=== PATIENT | female | born 1980 | race Caucasian/White ===

== ENCOUNTER 2017-04-04 13:40 | Emergency (ER) | payer OTHER ==
[2017-04-04 13:55] VITALS: RESP 18
[2017-04-04] MEDS ORDERED: MAG HYDROX/AL HYDROX/SIMETH 30 ML CUP PO PRN (14:38)
[2017-04-04] MEDS ORDERED: FAMOTIDINE 20 MG/2 ML VIAL IV STA (14:38)
[2017-04-04] MEDS ORDERED: SODIUM CHLORIDE 0.9% 1,000 ML IV ONE (14:38)
[2017-04-04] MEDS ORDERED: ONDANSETRON 4 MG/2 ML VIAL IVP STA (14:38)
--- NOTE | 2017-04-04 14:49 | ED ---
Nausea/Vomiting/Diarrhea HPI - General Chief complaint: Nausea/Vomiting/Diarrhea Stated complaint: Acid Reflux Source: patient Mode of arrival: ambulatory Limitations: no limitations - History of Present Illness Initial comments: 36 her female presenting for evaluation of nausea and vomiting. She states that she has past medical history of GERD and it is exacerbated by alcohol consumption. She was at a wedding last night and had a few drinks and states having generalized GERD discomfort late in the evening and nausea and vomiting since midnight. She states she's had about 13 episodes of vomiting without hematemesis. She states she is usually able to manage her GERD with oral medications but at this point she is unable to keep them down. She describes her discomfort as a burning and is similar to previous exacerbations that were also induced by alcohol. She denies associated abdominal pain, dysuria, vaginal bleeding/discharge, constipation/diarrhea/melena/hematochezia. - Related Data Home Medications Medication Instructions Recorded Confirmed Ergocalciferol (Vitamin D2) 50,000 unit PO MO 04/04/17 04/04/17 [Vitamin D2] L.acidoph,Paracasei, B.lactis 1 cap PO DAILY 04/04/17 04/04/17 [Probiotic] Levothyroxine Sodium [Synthroid] 50 mcg PO DAILY 04/04/17 04/04/17 Methylphenidate HCl [Concerta] 36 mg PO DAILY 04/04/17 04/04/17 Previous Rx's Medication Instructions Recorded Mag Hydrox/Al Hydrox/Simeth 30 ml PO BID PRN #200 ml 04/04/17 [Maalox] Sucralfate [Carafate] 1 gm PO ACHS #30 tab 04/04/17 Allergies Allergy/AdvReac Type Severity Reaction Status Date / Time cefuroxime [From Ceftin] Allergy Rash/Hives Verified 04/04/17 14:10 hydrocodone bitartrate Allergy Rash/Hives Verified 04/04/17 14:10 [From Vicodin] propoxyphene napsylate Allergy Vomiting Verified 04/04/17 13:54 [From Darvocet-N] carbamazepine [From Tegretol] AdvReac Vomiting Verified 04/04/17 13:54 Review of Systems ROS Statement: Those systems with pertinent positive or pertinent negative responses have been documented in the HPI. ROS Other: All systems not noted in ROS Statement are negative. Constitutional: Denies: fever, chills, weakness Eyes: Denies: eye pain, eye discharge, vision change ENT: Denies: ear pain, throat pain Respiratory: Denies: cough, dyspnea Cardiovascular: Denies: chest pain, palpitations, dyspnea on exertion, orthopnea , edema Endocrine: Denies: fatigue, polydipsia, polyuria Gastrointestinal: Reports: nausea, vomiting, other (GERD). Denies: abdominal pain, diarrhea, constipation, hematemesis, melena, hematochezia Genitourinary: Denies: urgency, dysuria Musculoskeletal: Denies: back pain, arthralgia, myalgia Skin: Denies: rash, lesions Neurological: Denies: headache, weakness, numbness, paresthesias, confusion Psychiatric: Denies: anxiety, depression Hematological/Lymphatic: Denies: easy bleeding, easy bruising Past Medical History Past Medical History: Thyroid Disorder Additional Past Medical History / Comment(s): narcalepsy, hemachromotisis History of Any Multi-Drug Resistant Organisms: None Reported Past Surgical History: Hysterectomy Additional Past Surgical History / Comment(s): foot Past Psychological History: No Psychological Hx Reported Smoking Status: Never smoker Past Alcohol Use History: Occasional Past Drug Use History: None Reported General Exam Limitations: no limitations General appearance: alert, in no apparent distress Head exam: Present: atraumatic, normocephalic, normal inspection Eye exam: Present: normal appearance, PERRL, EOMI. Absent: scleral icterus, conjunctival injection, periorbital swelling ENT exam: Present: normal exam, mucous membranes moist Neck exam: Present: normal inspection. Absent: tenderness, meningismus, lymphadenopathy Respiratory exam: Present: normal lung sounds bilaterally. Absent: respiratory distress, wheezes, rales, rhonchi, stridor Cardiovascular Exam: Present: regular rate, normal rhythm, normal heart sounds. Absent: systolic murmur, diastolic murmur, rubs, gallop, clicks GI/Abdominal exam: Present: soft, normal bowel sounds. Absent: distended, tenderness, guarding, rebound, rigid Rectal exam: Present: deferred Extremities exam: Present: normal inspection, full ROM, normal capillary refill. Absent: tenderness, pedal edema, joint swelling, calf tenderness Back exam: Present: normal inspection Neurological exam: Present: alert, oriented X3, CN II-XII intact Psychiatric exam: Present: normal affect, normal mood Skin exam: Present: warm, dry, intact, normal color. Absent: rash Course Vital Signs 04/04/17 04/04/17 04/04/17 13:53 17:37 17:38 Temperature 98.2 F 98.2 F 97.8 F Pulse Rate 80 68 69 Respiratory 18 18 18 Rate Blood Pressure 122/66 128/67 128/67 O2 Sat by Pulse 98 100 100 Oximetry Medical Decision Making - Medical Decision Making 36-year-old female presented for evaluation of nausea and vomiting. She states is likely due to her GERD as she was drinking alcohol last night and this is the usual exacerbating factor to her GERD. She is unable to take any of her medications as she continues to have nausea and vomiting. She denies any abdominal pain, dysuria, vaginal bleeding/discharge, or constipation/ diarrhea. On physical examination she has a soft abdomen without peritoneal signs of guarding, rigidity, or rebound. The remainder of her physical exam is benign. Although this is likely an exacerbation of her GERD will still require ruling out pancreatitis versus cholelithiasis versus other intra-abdominal etiology. We will provide IV fluid, Pepcid, Maalox, and obtain labs and urine. Labs revealed no significant abnormalities and patient states that her symptoms have markedly improved. The patient was informed of her results and through shared decision making it was determined that she would be discharged with instructions to follow-up with her primary care physician and a GI specialist but to return to this facility if her symptoms should worsen or persist. The patient acknowledged an understanding of this information and agreed with this plan of care. - Lab Data Result diagrams: 04/04/17 14:41 04/04/17 14:41 Lab Results 04/04/17 04/04/17 04/04/17 Range/Units 14:41 14:41 14:41 WBC 9.9 (3.8-10.6) k/uL RBC 5.01 (3.80-5.40) m/uL Hgb 16.3 H (11.4-16.0) gm/dL Hct 48.5 H (34.0-46.0) % MCV 96.8 (80.0-100.0) fL MCH 32.6 (25.0-35.0) pg MCHC 33.7 (31.0-37.0) g/dL RDW 12.9 (11.5-15.5) % Plt Count 280 (150-450) k/uL Neutrophils % 76 % Lymphocytes % 18 % Monocytes % 3 % Eosinophils % 1 % Basophils % 1 % Neutrophils # 7.5 (1.3-7.7) k/uL Lymphocytes # 1.8 (1.0-4.8) k/uL Monocytes # 0.3 (0-1.0) k/uL Eosinophils # 0.1 (0-0.7) k/uL Basophils # 0.1 (0-0.2) k/uL Sodium 144 (137-145) mmol/L Potassium 4.4 (3.5-5.1) mmol/L Chloride 106 (98-107) mmol/L Carbon Dioxide 26 (22-30) mmol/L Anion Gap 12 mmol/L BUN 9 (7-17) mg/dL Creatinine 0.63 (0.52-1.04) mg/dL Est GFR (MDRD) Af Amer >60 (>60 ml/min/1.73 sqM) Est GFR (MDRD) Non-Af >60 (>60 ml/min/1.73 sqM) Glucose 95 (74-99) mg/dL Calcium 9.8 (8.4-10.2) mg/dL Total Bilirubin 1.0 (0.2-1.3) mg/dL AST 21 (14-36) U/L ALT 25 (9-52) U/L Alkaline Phosphatase 75 (38-126) U/L Total Protein 8.2 (6.3-8.2) g/dL Albumin 4.8 (3.5-5.0) g/dL Lipase 73 (23-300) U/L Urine Color Urine Appearance (Clear) Urine pH (5.0-8.0) Ur Specific [place] (1.001-1.035) Urine Protein (Negative) Urine Glucose (UA) (Negative) Urine Ketones (Negative) Urine Blood (Negative) Urine Nitrite (Negative) Urine Bilirubin (Negative) Urine Urobilinogen (<2.0) mg/dL Ur Leukocyte Esterase (Negative) Urine HCG, Qual Not Detected (Not Detectd) 04/04/17 Range/Units 14:41 WBC (3.8-10.6) k/uL RBC (3.80-5.40) m/uL Hgb (11.4-16.0) gm/dL Hct (34.0-46.0) % MCV (80.0-100.0) fL MCH (25.0-35.0) pg MCHC (31.0-37.0) g/dL RDW (11.5-15.5) % Plt Count (150-450) k/uL Neutrophils % % Lymphocytes % % Monocytes % % Eosinophils % % Basophils % % Neutrophils # (1.3-7.7) k/uL Lymphocytes # (1.0-4.8) k/uL Monocytes # (0-1.0) k/uL Eosinophils # (0-0.7) k/uL Basophils # (0-0.2) k/uL Sodium (137-145) mmol/L Potassium (3.5-5.1) mmol/L Chloride (98-107) mmol/L Carbon Dioxide (22-30) mmol/L Anion Gap mmol/L BUN (7-17) mg/dL Creatinine (0.52-1.04) mg/dL Est GFR (MDRD) Af Amer (>60 ml/min/1.73 sqM) Est GFR (MDRD) Non-Af (>60 ml/min/1.73 sqM) Glucose (74-99) mg/dL Calcium (8.4-10.2) mg/dL Total Bilirubin (0.2-1.3) mg/dL AST (14-36) U/L ALT (9-52) U/L Alkaline Phosphatase (38-126) U/L Total Protein (6.3-8.2) g/dL Albumin (3.5-5.0) g/dL Lipase (23-300) U/L Urine Color Yellow Urine Appearance Clear (Clear) Urine pH 6.5 (5.0-8.0) Ur Specific [place] 1.022 (1.001-1.035) Urine Protein Trace H (Negative) Urine Glucose (UA) Negative (Negative) Urine Ketones 4+ H (Negative) Urine Blood Negative (Negative) Urine Nitrite Negative (Negative) Urine Bilirubin Negative (Negative) Urine Urobilinogen <2.0 (<2.0) mg/dL Ur Leukocyte Esterase Negative (Negative) Urine HCG, Qual (Not Detectd) Disposition Clinical Impression: Nausea and vomiting, GERD (gastroesophageal reflux disease) Disposition: HOME SELF-CARE Condition: Stable Instructions: Acute Nausea and Vomiting (ED), Gastroesophageal Reflux Disease ( ED) Additional Instructions: Please use medication as discussed. Please follow up with family doctor if symptoms have not improved over the next two days. Please return to the emergency room if your symptoms increase or worsen or for any other concerns. Prescriptions: Mag Hydrox/Al Hydrox/Simeth [Maalox] 30 ml PO BID PRN #200 ml PRN Reason: gerd Sucralfate [Carafate] 1 gm PO ACHS #30 tab Referrals: Lane Amaya III, MD [Primary Care Provider] - 1-2 days Time of Disposition: 16:44
[2017-04-04 14:55] LABS: Basophils # (A) 0.1 k/uL (0-0.2); Basophils % (A) 1 %; CH 33.4; CHCM 34.6; Eosinophils # (A) 0.1 k/uL (0-0.7); Eosinophils % (A) 1 %; HCT 48.5 % (34.0-46.0); HDW 2.59; HGB 16.3 gm/dL (11.4-16.0); Luc # (Auto) 0.14; Luc % (Auto) 1; Lymphocytes # (A) 1.8 k/uL (1.0-4.8); Lymphocytes % (A) 18 %; MCH 32.6 pg (25.0-35.0); MCHC 33.7 g/dL (31.0-37.0); MCV 96.8 fL (80.0-100.0); Mean Platelet Volume 8.2; Monocytes # (A) 0.3 k/uL (0-1.0); Monocytes % (A) 3 %; Neutrophils # (A) 7.5 k/uL (1.3-7.7); Neutrophils % (A) 76 %; RBC 5.01 m/uL (3.80-5.40); RDW 12.9 % (11.5-15.5); WBC 9.9 k/uL (3.8-10.6); WBC (Perox) 9.68
[2017-04-04 15:03] LABS: Appearance,Urine Clear (Clear); Bilirubin,Urine Negative (Negative); Glucose,Urine (UA) Negative (Negative); Ketones,Urine 4+ (Negative); Leukocyte Esterase,Urine Negative (Negative); Nitrite,Urine Negative (Negative); PH, Urine 6.5 (5.0-8.0); Protein,Urine Trace (Negative); Specific Gravity,Urine 1.022 (1.001-1.035); UA Billing (MACRO vs. MICRO) CHEM; Urobilinogen,Urine <2.0 mg/dL (<2.0)
[2017-04-04 15:04] LABS: ALT 25 U/L (9-52); AST 21 U/L (14-36); Alkaline Phosphatase 75 U/L (38-126); Anion Gap 12 mmol/L; Blood Urea Nitrogen 9 mg/dL (7-17); Calcium 9.8 mg/dL (8.4-10.2); Carbon Dioxide 26 mmol/L (22-30); Chloride 106 mmol/L (98-107); Glucose 95 mg/dL (74-99); Non-African American GFR(MDRD) >60 (>60 ml/min/1.73 sqM); Potassium 4.4 mmol/L (3.5-5.1); Sodium 144 mmol/L (137-145); Total Protein 8.2 g/dL (6.3-8.2)
[2017-04-04 17:38] VITALS: BP 128/67
[2017-04-04 17:39] VITALS: PULSE 69; TEMP 97.8
== END 2017-04-04 17:39 | disposition home or self-care (01) ==
LOC: EC 13:40
DX: K21.9 Gastro-esophageal reflux disease without esophagitis (principal); R11.2 Nausea with vomiting, unspecified; E07.9 Disorder of thyroid, unspecified; G47.419 Narcolepsy without cataplexy; Z79.899 Other long term (current) drug therapy; Z88.5 Allergy status to narcotic agent; Z88.1 Allergy status to other antibiotic agents; Z88.8 Allergy status to other drugs, medicaments and biological substances
CPT/HCPCS: 36415; 80053; 83690; 85025; 81003; 81025; 99284; 96374; 96375; J2405

== ENCOUNTER → 2019-01-03 | Outpatient (CLI) | payer OTHER ==
--- NOTE | 2019-01-04 09:32 | MM ---
Reason for exam: screening (asymptomatic). Baseline mammogram. History: Family history of breast cancer in aunt at age 41 and breast cancer in 3 other aunts. Took hormonal contraceptives beginning at age 17. Physical Findings: Nurse Summary: 1cm nodule in the left breast at 11 o'clock (nurse amadeo). MG 3D Screening Mammo W/Cad Bilateral CC and MLO view(s) were taken. The breast tissue is heterogeneously dense. This may lower the sensitivity of mammography. These results were verbally communicated with the patient and result sheet given to the patient on 01/03/19. ASSESSMENT: Incomplete: need additional imaging evaluation, BI-RAD 0 RECOMMENDATION: Ultrasound of the right breast. (palpable) [facility] will attempt to contact patient to return for ultrasound.
--- NOTE | 2019-01-04 09:34 | USB ---
Reason for exam: additional evaluation requested from abnormal screening. History: Family history of breast cancer in aunt at age 41 and breast cancer in 3 other aunts. Took hormonal contraceptives beginning at age 17. Physical Findings: Breast exam preformed at baseline screening. US Breast Workup Limited RT Right limited breast ultrasound including focal area of concern, retroareolar and axilla demonstrates a 0.7 x 0.3 x 0.5cm mixed lesion at 11 o'clock may correlate with palpable abnormality. These results were verbally communicated with the patient and result sheet given to the patient on 01/03/19. ASSESSMENT: Suspicious, BI-RAD 4 RECOMMENDATION: Surgical consultation and ultrasound core biopsy of the right breast. Called Dr. Amaya with mammographic findings and has scheduled an appointment for the patient for 01/05/19 at 9:[address] Sánchez. Biopsy scheduled for 01/11/19 at 12:20. PRELIMINARY REPORT CALLED AND FAXED TO DR. SÁNCHEZ ON 01/04/19.
== END ==
LOC: RADMAMWWP 15:39
PROVIDERS: ATTEND Family Medicine
DX: Z12.31 Encounter for screening mammogram for malignant neoplasm of breast (principal); R92.8 Other abnormal and inconclusive findings on diagnostic imaging of breast
CPT/HCPCS: 77063; 77067

== ENCOUNTER → 2019-01-05 | Outpatient (CLI) | payer OTHER ==
[2019-01-05 13:51] VITALS: BP 114/71; PULSE 74; RESP 16; TEMP 98.2; BMI 25.2
--- NOTE | 2019-01-05 14:31 | P.GSHP ---
History of Present Illness H&P Date: 01/05/19 Chief Complaint: nodule right breast Yoana is a 38-year-old white female who noted approximately 2 weeks ago an area of increased nodularity in the upper outer quadrant region of the right breast. She subsequently had a mammogram performed which did not show any specific lesions of concern this was followed by an ultrasound which revealed a 0.7 x 0.5 cm mixed lesion at 11:00. These studies were performed on 2018. The patient slowly 2 weeks ago she noted 2 areas of swelling under the right arm which are painful but have since subsided. The patient is not had any infection or trauma to her breast or right upper extremity. The area of nodularity in her right breast is not painful. The patient does not know if there is any correlation with her menstrual periods that she had a partial hysterectomy approximately 9 years ago, her ovaries were not removed. Patient has used Accutane in the recent past. Family History: 1. mother: moved when patient was 4 2. paternal grest aunt: two with breast cancer, one in early forties, the other in her 60's 3. paternal grandmother: hodgkins lymphoma Hormonal History: menarche: 12 : 3, 3 children, first at 20, breast fed: yes hysterectomy for bleeding, did not take ovaries, had lesions frozen off cervix BCP: 3 years hormones: none Past surgical history: 1. Partial hysterectomy 2. Neuroma right foot 3. Carpal tunnel right breast Past Medical History: 1. narcolepsy 2. Hemachromatosis 3. vitamin D low 4. anemia/took B12 Social History: smoke: none alcohol: every other month drugs: none - Constitutional Constitutional: Reports sweats, Denies chills, Denies fever - EENT Eyes: denies blurred vision, denies pain Ears: deny: decreased hearing, tinnitus Ears, nose, mouth and throat: Denies headache, Denies sore throat - Breasts Breasts: bilateral: as per HPI - Cardiovascular Cardiovascular: Denies chest pain, Denies shortness of breath - Respiratory Respiratory: Denies cough, Denies 7 - Gastrointestinal Gastrointestinal: Reports constipation, Denies abdominal pain, Denies diarrhea, Denies nausea, Denies vomiting - Genitourinary (Female) Comment: UTI when younger - Menstruation Comment: prone to yeast infections Menstruation: Reports post hysterectomy - Musculoskeletal Comment: fibromyalgia possible C spine changes - Integumentary Comment: used accutane for skin changes - Neurological Comment: left hand numbness and tingling needs carpal tunnel surgery Neurological: Denies numbness, Denies weakness - Psychiatric Psychiatric: Denies anxiety, Denies depression - Endocrine Comment: weight loss eating more healthy hypothyroid Endocrine: Reports weight change, Denies fatigue - Hematologic/Lymphatic Comment: none - Allergic/Immunologic Allergic/Immunologic: Reports as per HPI Past Medical History Past Medical History: Thyroid Disorder Additional Past Medical History / Comment(s): narcalepsy, hemachromotisis History of Any Multi-Drug Resistant Organisms: None Reported Past Surgical History: Hysterectomy Additional Past Surgical History / Comment(s): foot Past Psychological History: No Psychological Hx Reported Smoking Status: Never smoker Past Alcohol Use History: Occasional Past Drug Use History: None Reported Medications and Allergies Home Medications Medication Instructions Recorded Confirmed Type Ergocalciferol (Vitamin D2) 50,000 unit PO MO 04/04/17 01/05/19 History [Vitamin D2] Levothyroxine Sodium [Synthroid] 50 mcg PO DAILY 04/04/17 01/05/19 History Lisdexamfetamine Dimesylate DAILY 01/05/19 History [Vyvanse] Allergies Allergy/AdvReac Type Severity Reaction Status Date / Time cefuroxime [From Ceftin] Allergy Rash/Hives Verified 04/04/17 14:10 hydrocodone bitartrate Allergy Rash/Hives Verified 04/04/17 14:10 [From Vicodin] propoxyphene napsylate Allergy Vomiting Verified 04/04/17 13:54 [From Darvocet-N] carbamazepine [From Tegretol] AdvReac Vomiting Verified 04/04/17 13:54 Surgical - Exam Vital Signs Temp Pulse Resp BP Pulse Ox 98.2 F 74 16 114/71 99 01/05/19 13:42 01/05/19 13:42 01/05/19 13:42 01/05/19 13:42 01/05/19 13:42 BMI 25.2 - General well developed, well nourished, no distress - Eyes normal ocular movement - ENT no hearing loss, no congestion - Neck no masses, trachea midline - Respiratory normal respiratory effort, clear to auscultation - Cardiovascular Rhythm: regular Heart Sounds: normal: S1, S2 - Abdomen Abdomen: soft, non tender, no guarding, no rigid, no rebound - Integumentary skin condition, unsure of type, few areas of skin pocking over her face Dark nevus left upper abdominal wall - Neurologic no disoriented, no combative - Musculoskeletal normal gait, normal posture - Psychiatric oriented to time, oriented to person, oriented to place, speech is normal, memory intact Breast examination: Right breast: Multi-positional exam fibrocystic changes with increased nodularity upper outer quadrant area without dominant discrete mass of concern Right axilla: No adenopathy of concern Left breast: Multi-positional exam fibrocystic changes without dominant discrete mass or nodule of concern Left axilla: No adenopathy of concern Results Mammogram and ultrasound reports reviewed Assessment and Plan Assessment: Impression: 1. Increased fibroglandular tissue right breast upper outer quadrant region patient recommended for ultrasound-guided core biopsy of this area 2. Ultrasound abnormality right breast 3. Narcolepsy 4. Hemachromatosis 5. Anemia, patient takes vitamin D and did take B12 in the past 6. Fibromyalgia 7. Skin nevus left upper abdominal wall Plan: 1. Ultrasound-guided core biopsy right breast 2. Medical management of medical conditions 3. Continue to follow with dermatology and consider excision of nevus left upper abdominal wall which is dark CC: Dr. Amaya, Mary Ellen Duval N.P.
== END ==
LOC: WWCWWP 13:00
PROVIDERS: ATTEND Surgery
DX: Z53.9 Procedure and treatment not carried out, unspecified reason (principal)

== ENCOUNTER → 2019-01-11 | Day surgery (SDC) | payer OTHER ==
[2019-01-11 11:36] VITALS: RESP 16; TEMP 98; BMI 25.2
[2019-01-11 13:12] VITALS: BP 109/72; PULSE 73
--- NOTE | 2019-01-11 13:16 | USB ---
EXAMINATION TYPE: US biopsy breast VAD RT, MG diagnostic mammo RT wo CAD DATE OF EXAM: 01/11/2019 CLINICAL HISTORY: R92.8 ABN EJ. TECHNIQUE: Ultrasound guided core biopsy of right 11:00 breast. COMPARISON: NONE FINDINGS: The procedure of ultrasound guided core biopsy was explained to the patient. Benefits, alternatives, and risks were discussed. An informed consent was then obtained. The patient was placed in supine positioning for imaging and for the procedure. The overlying skin was prepped and draped in usual sterile fashion. Lidocaine buffered with bicarbonate was used as anesthetic into the skin and subcutaneous tissue up to area of concern in the right 11:00 breast. Under ultrasound guidance, a 12-gauge vacuum assisted biopsy gun device was used to obtain 3 core samples. Following this, a biopsy clip was left in lesion. Postprocedural mammogram demonstrates appropriate clip deployment. The patient tolerated the procedure well without any immediate complication. The patient was kept in the radiology department for short stay after the procedure and then discharged home in stable condition. IMPRESSION: Successful, uncomplicated ultrasound guided core biopsy of area of concern in the right 11:00 breast, full pathology results to follow. Pathology Results: Benign RIGHT BREAST, NEEDLE CORE BIOPSIES: Benign breast parenchyma with fibrocystic changes. Recommendation Follow up ultrasound of the left breast in 6 months. (6 month follow up ultrasound of the 11 o'clock biopsied site as this presented as a palpable site) BALJIT
== END ==
LOC: RADUSWWP 11:06
PROVIDERS: ATTEND Surgery
DX: N60.11 Diffuse cystic mastopathy of right breast (principal); Z88.1 Allergy status to other antibiotic agents; Z88.5 Allergy status to narcotic agent; Z88.8 Allergy status to other drugs, medicaments and biological substances
CPT/HCPCS: 88305; 77065; 19083; A4648; J2001

== ENCOUNTER → 2019-01-20 | Outpatient (CLI) | payer OTHER ==
[2019-01-20 13:34] VITALS: BP 120/60; PULSE 86; RESP 16; TEMP 96.3; BMI 25.2
--- NOTE | 2019-01-20 14:03 | P.PN ---
Subjective Progress Note Date: 01/20/19 Principal diagnosis: Patient is status post ultrasound-guided core biopsy of right breast lesion Yoana is a 38-year-old white female who is status post ultrasound core biopsy of an area of concern in the right breast. The lesion was a 0.7 x 0.5 cm mixed area at 11:00. The patient initially had some palpable change in her breast which had subsided and has not returned. Pathology of this area revealed benign fibroglandular tissue. The results of the ultrasound were reviewed with the radiologist and the feeling is that this most likely is career services representative of the area which was biopsied and the change on the ultrasound. This was benign breast parenchyma with fibrocystic changes. The concern is that his is concordant with that which was seen. After discussion with radiology the feeling was that the patient could have a repeat ultrasound at a closer interval, or needle local and needle local excision of the area, the latter was not recommended. The patient developed some ecchymosis following the procedure this is resolving and she has no complaints at this time. Objective - Vital Signs Vital signs: Vital Signs Temp 96.3 F L 01/20/19 13:30 Pulse 86 01/20/19 13:30 Resp 16 01/20/19 13:30 BP 120/60 01/20/19 13:30 Pulse Ox 100 01/20/19 13:30 Intake & Output 01/19/19 01/20/19 01/20/19 18:59 06:59 18:59 Weight 70.76 kg - Constitutional General appearance: Present: average body habitus - EENT Eyes: Present: EOMI ENT: Present: hearing grossly normal - Neck Neck: Present: normal ROM - Respiratory Respiratory: bilateral: CTA - Cardiovascular Rhythm: regular Heart sounds: normal: S1, S2 - Psychiatric Psychiatric: Present: A&O x's 3, appropriate affect, intact judgment & insight - Additional findings Additional findings: Right breast examination: Core biopsy site mild ecchymosis Evidence of infection No evidence of hematoma Assessment and Plan Assessment: Impression: 1. Ultrasound-guided core biopsy of right breast lesion [id number], biopsy benign 2. Concern whether the area biopsied is concordant potassium and ultrasound, 3. Family history of cancer, paternal grandmother Hodgkin's lymphoma Plan: 1. Repeat right breast ultrasound in 3 months time with physician exam at that time 2. Patient to call immediately if any questions of concern 3. We have discussed needle local excisional biopsy however it is felt that the area sampled as most likely that which was seen on the ultrasound and we will just follow this area closely. We did discuss doing immediate repeat ultrasound however secondary to inflammation in the area related to the biopsy radiologist felt that this would be of little benefit. Therefore after considering the options it is decided that we will do a repeat ultrasound in 3 months time rather than 6 months time and see the patient at that time CC: Dr. mAaya
== END | disposition home or self-care (01) ==
LOC: WWCWWP 13:24
PROVIDERS: ATTEND Surgery
DX: Z53.9 Procedure and treatment not carried out, unspecified reason (principal)

== ENCOUNTER 2019-06-06 12:05 | Emergency (ER) | payer OTHER ==
[2019-06-06 12:21] VITALS: BP 115/78; PULSE 72; RESP 18; TEMP 97.6
[2019-06-06] MEDS ORDERED: KETOROLAC 30 MG/ML 1 ML VIAL IVP STA (12:35)
[2019-06-06] MEDS ORDERED: SODIUM CHLORIDE 0.9% 1,000 ML IV STA (12:35)
[2019-06-06] MEDS ORDERED: ONDANSETRON 4 MG/2 ML VIAL IVP STA (12:35)
[2019-06-06] MEDS ORDERED: SODIUM CHLORIDE 0.9% 500 ML 500 ML IV STA (12:35)
--- NOTE | 2019-06-06 12:41 | ED ---
Abdominal Pain HPI - General Chief Complaint: Abdominal Pain Stated Complaint: Stomach pain/vomiting Time Seen by Provider: 06/06/19 12:23 Source: patient, RN notes reviewed Mode of arrival: ambulatory Limitations: no limitations - History of Present Illness Initial Comments: 38-year-old female presents emergency Department with chief complaint of abdom inal pain. Patient states started this morning the sudden onset of left flank pain. Patient states nothing seems to make it feel better or worse it does wax and wane. Patient had associated nausea and vomiting continuously urinary frequency. Patient states that she hasn't had a partial hysterectomy no other abdominal surgeries. Patient denies fever, chills, chest pain or shortness breath. Patient states that she has chronic constipation or from than usual. Denies any hematemesis copremesis. Patient unable take any further pain at this time. - Related Data Home Medications Medication Instructions Recorded Confirmed Ergocalciferol (Vitamin D2) 50,000 unit PO WEEKLY 04/04/17 01/20/19 [Vitamin D2] Lisdexamfetamine Dimesylate 1 tab PO DAILY 01/05/19 01/20/19 [Vyvanse] Previous Rx's Medication Instructions Recorded Dicyclomine [Bentyl] 20 mg PO TID #30 tablet 06/06/19 Ondansetron Odt [Zofran Odt] 4 mg PO Q8HR PRN #10 tab 06/06/19 Allergies Allergy/AdvReac Type Severity Reaction Status Date / Time acetaminophen [From Lortab] Allergy Rash/Hives Verified 06/06/19 12:21 cefuroxime [From Ceftin] Allergy Rash/Hives Verified 06/06/19 12:21 hydrocodone [From Lortab] Allergy Rash/Hives Verified 06/06/19 12:21 hydrocodone bitartrate Allergy Rash/Hives Verified 06/06/19 12:21 [From Vicodin] propoxyphene napsylate Allergy Vomiting Verified 06/06/19 12:21 [From Darvocet-N] carbamazepine [From Tegretol] AdvReac Vomiting Verified 06/06/19 12:21 Review of Systems ROS Statement: Those systems with pertinent positive or pertinent negative responses have been documented in the HPI. ROS Other: All systems not noted in ROS Statement are negative. Past Medical History Past Medical History: GERD/Reflux, Thyroid Disorder Additional Past Medical History / Comment(s): narcalepsy, hemachromotisis History of Any Multi-Drug Resistant Organisms: None Reported Past Surgical History: Hysterectomy Additional Past Surgical History / Comment(s): right foot surgery-neroma removed 2012. carpal tunnel surgery Past Anesthesia/Blood Transfusion Reactions: No Reported Reaction Past Psychological History: No Psychological Hx Reported Smoking Status: Never smoker Past Alcohol Use History: Occasional Past Drug Use History: None Reported General Exam Limitations: no limitations General appearance: alert, in no apparent distress Head exam: Present: atraumatic, normocephalic, normal inspection Neck exam: Present: normal inspection, full ROM. Absent: tenderness, meningismus, lymphadenopathy Respiratory exam: Present: normal lung sounds bilaterally. Absent: respiratory distress, wheezes, rales, rhonchi, stridor Cardiovascular Exam: Present: regular rate, normal rhythm, normal heart sounds. Absent: systolic murmur, diastolic murmur, rubs, gallop, clicks GI/Abdominal exam: Present: soft, tenderness (Minimal left-sided), normal bowel sounds. Absent: distended, guarding, rebound, rigid Back exam: Absent: CVA tenderness (R), CVA tenderness (L) Skin exam: Present: warm, dry, intact, normal color. Absent: rash Course Vital Signs 06/06/19 12:18 Temperature 97.6 F Pulse Rate 72 Respiratory 18 Rate Blood Pressure 115/78 O2 Sat by Pulse 100 Oximetry Medical Decision Making - Medical Decision Making 38-year-old female was in a abdominal pain cramping, nausea vomiting. Patient CT shows evidence of enteritis and stool burden. Patient's symptoms are c onsistent with this there is no evidence of kidney stone or diverticulitis. Patient discharged with Bentyl and Zofran return parameters were discussed. - Lab Data Result diagrams: 06/06/19 13:17 06/06/19 13:17 Lab Results 06/06/19 06/06/19 06/06/19 Range/Units 13:17 13:17 13:17 WBC 10.7 H (3.8-10.6) k/uL RBC 4.97 (3.80-5.40) m/uL Hgb 16.4 H (11.4-16.0) gm/dL Hct 48.1 H (34.0-46.0) % MCV 96.8 (80.0-100.0) fL MCH 33.1 (25.0-35.0) pg MCHC 34.1 (31.0-37.0) g/dL RDW 12.4 (11.5-15.5) % Plt Count 221 (150-450) k/uL Neutrophils % 78 % Lymphocytes % 16 % Monocytes % 4 % Eosinophils % 1 % Basophils % 0 % Neutrophils # 8.3 H (1.3-7.7) k/uL Lymphocytes # 1.7 (1.0-4.8) k/uL Monocytes # 0.4 (0-1.0) k/uL Eosinophils # 0.1 (0-0.7) k/uL Basophils # 0.0 (0-0.2) k/uL Sodium 140 (137-145) mmol/L Potassium 4.7 (3.5-5.1) mmol/L Chloride 104 (98-107) mmol/L Carbon Dioxide 27 (22-30) mmol/L Anion Gap 9 mmol/L BUN 11 (7-17) mg/dL Creatinine 0.60 (0.52-1.04) mg/dL Est GFR (CKD-EPI)AfAm >90 (>60 ml/min/1.73 sqM) Est GFR (CKD-EPI)NonAf >90 (>60 ml/min/1.73 sqM) Glucose 95 (74-99) mg/dL Calcium 9.6 (8.4-10.2) mg/dL Total Bilirubin 0.8 (0.2-1.3) mg/dL AST 22 (14-36) U/L ALT 21 (9-52) U/L Alkaline Phosphatase 74 (38-126) U/L Total Protein 7.4 (6.3-8.2) g/dL Albumin 4.5 (3.5-5.0) g/dL Lipase 70 (23-300) U/L Urine Color Yellow Urine Appearance Clear (Clear) Urine pH 7.5 (5.0-8.0) Ur Specific [place] 1.019 (1.001-1.035) Urine Protein Negative (Negative) Urine Glucose (UA) Negative (Negative) Urine Ketones Negative (Negative) Urine Blood Negative (Negative) Urine Nitrite Negative (Negative) Urine Bilirubin Negative (Negative) Urine Urobilinogen <2.0 (<2.0) mg/dL Ur Leukocyte Esterase Negative (Negative) Disposition Clinical Impression: Abdominal pain, Enteritis Disposition: HOME SELF-CARE Condition: Stable Instructions (If sedation given, give patient instructions): Abdominal Pain (ED) Additional Instructions: Please return to the Emergency Department if symptoms worsen or any other concerns. Prescriptions: Dicyclomine [Bentyl] 20 mg PO TID #30 tablet Ondansetron Odt [Zofran Odt] 4 mg PO Q8HR PRN #10 tab PRN Reason: Nausea Is patient prescribed a controlled substance at d/c from ED?: No Referrals: Lane Amaya III, MD [Primary Care Provider] - 1-2 days Time of Disposition: 15:13
[2019-06-06 13:27] LABS: Appearance,Urine Clear (Clear); Basophils % (A) 0 %; Bilirubin,Urine Negative (Negative); Blood,Urine Negative (Negative); Color,Urine Yellow; Eosinophils # (A) 0.1 k/uL (0-0.7); Eosinophils % (A) 1 %; Glucose,Urine (UA) Negative (Negative); HCT 48.1 % (34.0-46.0); HGB 16.4 gm/dL (11.4-16.0); Ketones,Urine Negative (Negative); Leukocyte Esterase,Urine Negative (Negative); Lymphocytes # (A) 1.7 k/uL (1.0-4.8); Lymphocytes % (A) 16 %; MCH 33.1 pg (25.0-35.0); MCHC 34.1 g/dL (31.0-37.0); MCV 96.8 fL (80.0-100.0); Mean Platelet Volume 8.3; Monocytes # (A) 0.4 k/uL (0-1.0); Monocytes % (A) 4 %; Neutrophils # (A) 8.3 k/uL (1.3-7.7); Neutrophils % (A) 78 %; Nitrite,Urine Negative (Negative); PH, Urine 7.5 (5.0-8.0); Platelet Count 221 k/uL (150-450); Protein,Urine Negative (Negative); RBC 4.97 m/uL (3.80-5.40); RDW 12.4 % (11.5-15.5); Specific Gravity,Urine 1.019 (1.001-1.035); Urobilinogen,Urine <2.0 mg/dL (<2.0); WBC 10.7 k/uL (3.8-10.6)
[2019-06-06 13:38] LABS: ALT 21 U/L (9-52); AST 22 U/L (14-36); African American GFR (CKD) >90 (>60 ml/min/1.73 sqM); Albumin 4.5 g/dL (3.5-5.0); Alkaline Phosphatase 74 U/L (38-126); Anion Gap 9 mmol/L; Blood Urea Nitrogen 11 mg/dL (7-17); Calcium 9.6 mg/dL (8.4-10.2); Carbon Dioxide 27 mmol/L (22-30); Chloride 104 mmol/L (98-107); Glucose 95 mg/dL (74-99); Lipase 70 U/L (23-300); Potassium 4.7 mmol/L (3.5-5.1); Sodium 140 mmol/L (137-145); Total Bilirubin 0.8 mg/dL (0.2-1.3); Total Protein 7.4 g/dL (6.3-8.2)
--- NOTE | 2019-06-06 14:13 | XR ---
EXAMINATION TYPE: XR KUB DATE OF EXAM: 06/06/2019 CLINICAL DATA: 38-year-old female with abdominal pain, PH[facility] COMPARISON: None FINDINGS: Lung bases are clear. No evidence for free intraperitoneal air. No dilated small bowel or air-fluid levels. Scattered air and stool seen throughout the colon extendi ng distally into the rectum. Moderate overall stool burden. Tiny phleboliths in the right side of the pelvis. IMPRESSION: 1. Moderate stool burden. 2.No evidence of bowel obstruction or free intraperitoneal air.
--- NOTE | 2019-06-06 15:05 | CT ---
EXAMINATION TYPE: CT abdomen pelvis w con DATE OF EXAM: 06/06/2019 COMPARISON: NONE HISTORY: 38-year-old female Left sided pain with nausea, vomiting and urination changes TECHNIQUE: Contiguous axial scanning of the abdomen and pelvis following administration of 100 ml Iso lola 300 IV contrast. Delayed images through the kidneys and coronal/sagittal reconstructions perform ed. CT DLP: 656.8 mGycm Automated exposure control for dose reduction was used. FINDINGS: Heart normal size without pericardial effusion. Lung bases clear without pleural effusion. Small amount of focal fat along the anterior falciform ligament. Otherwise, no focal liver lesion or biliary ductal dilatation. Portal venous system is patent. Gallbladder, adrenal glands, kidneys, spleen with inferior splenule, and pancreas appear within ling l limits. No dilated small bowel, free fluid, or free air. No mesenteric or retroperitoneal lymphadenopathy. Normal appendix. Moderate stool burden. No pericolonic inflammatory change. Numerous prominent fluid-filled small bowel loops are seen throughout the abdomen. Bladder nondistended. Pelvic phleboliths. Uterus surgically absent. Both ovaries are visualized. Ther e is a 2.9 cm cyst within the right ovary as well as a 1.8 cm recently ruptured follicle or corpus meena teum. 1.6 cm cyst in the left ovary. Mild cul-de-sac free fluid likely physiologic. Bones: Transitional lumbosacral segment denoted as a sacralized L5. IMPRESSION: 1. PROMINENT FLUID-FILLED SMALL BOWEL LOOPS SEEN THROUGHOUT THE ABDOMEN. CORRELATE FOR NONSPECIFIC EN TERITIS. 2. MODERATE STOOL BURDEN. 3. SUSPECT PHYSIOLOGIC CHANGES IN BOTH OVARIES WITH DOMINANT FOLLICLES ON EITHER SIDE MEASURING 2.9 C M ON THE RIGHT AND 1.6 CM ON THE LEFT. ADDITIONAL 1.8 CM RECENTLY RUPTURED FOLLICLE OR CORPUS LUTEUM ON THE RIGHT. 4. MILD CUL-DE-SAC FREE FLUID LIKELY PHYSIOLOGIC.
== END 2019-06-06 15:49 | disposition home or self-care (01) ==
LOC: EC 12:05
DX: K52.9 Noninfective gastroenteritis and colitis, unspecified (principal); R35.0 Frequency of micturition; K59.09 Other constipation; Z88.1 Allergy status to other antibiotic agents; Z88.5 Allergy status to narcotic agent; Z88.6 Allergy status to analgesic agent; Z88.8 Allergy status to other drugs, medicaments and biological substances; Z79.899 Other long term (current) drug therapy
CPT/HCPCS: 99284; 96374; 96375; 96361; 36415; 80053; 83690; 85025; 81003; 74018; 74177; J2405; J1885; Q9967

== ENCOUNTER 2020-03-07 20:05 | Emergency (ER) | payer OTHER ==
[2020-03-07] MEDS ORDERED: KETOROLAC 30 MG/ML 1 ML VIAL IM STA (21:19)
[2020-03-07] MEDS ORDERED: DIAZEPAM 5 MG/ML 2 ML INJ IM ONE (21:19)
[2020-03-07 22:04] LABS: Appearance,Urine Clear (Clear); Bilirubin,Urine Negative (Negative); Blood,Urine Negative (Negative); Color,Urine Yellow; Glucose,Urine (UA) Negative (Negative); Ketones,Urine Negative (Negative); Leukocyte Esterase,Urine Negative (Negative); Nitrite,Urine Negative (Negative); Protein,Urine Trace (Negative); Specific Gravity,Urine 1.042 (1.001-1.035)
[2020-03-07] MEDS ORDERED: ACET/COD 300 MG/30 MG STARTER PACK 6 TAB BTL PO STA (22:17)
[2020-03-07] MEDS ORDERED: CYCLOBENZAPRINE 10MG STARTER 3 TAB BTL PO STA (22:17)
--- NOTE | 2020-03-07 22:17 | ED ---
Back Pain HPI - General Chief Complaint: Back Pain/Injury Stated Complaint: Back Pain Time Seen by Provider: 03/07/20 20:13 Source: patient Limitations: no limitations - History of Present Illness Initial Comments: 39-year-old female patient presents to the emergency department today for evaluation of right lower back pain. Patient states the pain started on the first and has been worsening. Patient states that the pain worsens when she lies on her right side or when she changes position. States it hurts when she sits in a sitting position for too long. Denies any radiation of the pain down her legs. States it does wrap around the right hip. Denies any abdominal pain. Denies any hematuria, dysuria, urinary frequency, urinary urgency. Denies any saddle anesthesia or loss of bowel or bladder control. Denies lower extremity paresthesia. Patient denies history of back pain. Denies any fever or chills. States that she was in to see her primary care physician was given muscle relaxers. States when these didn't seem to help she did have an x-ray performed, reportedly this was negative. Patient denies any recent rash, cough, shortness of breath, chest pain, nausea, vomiting, diarrhea, constipation, dizziness, weakness, headache, visual changes, or any other complaints. - Related Data Home Medications Medication Instructions Recorded Confirmed Ergocalciferol (Vitamin D2) 50,000 unit PO WEEKLY 04/04/17 01/20/19 [Vitamin D2] Lisdexamfetamine Dimesylate 1 tab PO DAILY 01/05/19 01/20/19 [Vyvanse] Previous Rx's Medication Instructions Recorded Dicyclomine [Bentyl] 20 mg PO TID #30 tablet 06/06/19 Ondansetron Odt [Zofran Odt] 4 mg PO Q8HR PRN #10 tab 06/06/19 Cyclobenzaprine [Flexeril] 10 mg PO TID #20 tab 03/07/20 Allergies Allergy/AdvReac Type Severity Reaction Status Date / Time acetaminophen [From Lortab] Allergy Rash/Hives Verified 03/07/20 20:12 cefuroxime [From Ceftin] Allergy Rash/Hives Verified 03/07/20 20:12 hydrocodone [From Lortab] Allergy Rash/Hives Verified 03/07/20 20:12 hydrocodone bitartrate Allergy Rash/Hives Verified 03/07/20 20:12 [From Vicodin] propoxyphene napsylate Allergy Vomiting Verified 03/07/20 20:12 [From Darvocet-N] carbamazepine [From Tegretol] AdvReac Vomiting Verified 03/07/20 20:12 Review of Systems ROS Statement: Those systems with pertinent positive or pertinent negative responses have been documented in the HPI. ROS Other: All systems not noted in ROS Statement are negative. Past Medical History Past Medical History: GERD/Reflux, Thyroid Disorder Additional Past Medical History / Comment(s): narcalepsy, hemachromotisis History of Any Multi-Drug Resistant Organisms: None Reported Past Surgical History: Hysterectomy Additional Past Surgical History / Comment(s): right foot surgery-neroma removed 2012. carpal tunnel surgery Past Anesthesia/Blood Transfusion Reactions: No Reported Reaction Past Psychological History: No Psychological Hx Reported Smoking Status: Never smoker Past Alcohol Use History: Occasional Past Drug Use History: None Reported General Exam Limitations: no limitations General appearance: alert, in no apparent distress, other (Physical well- developed, well-nourished adult female patient in no acute distress. Vital signs upon presentation are temperature 98.4F, pulse 96, respirations 18, blood pressure 144/85, pulse ox 99% on room air.) Eye exam: Present: normal appearance, PERRL, EOMI. Absent: scleral icterus, conjunctival injection, periorbital swelling ENT exam: Present: normal exam, normal oropharynx, mucous membranes moist Respiratory exam: Present: normal lung sounds bilaterally. Absent: respiratory distress, wheezes, rales, rhonchi, stridor Cardiovascular Exam: Present: regular rate, normal rhythm, normal heart sounds. Absent: systolic murmur, diastolic murmur, rubs, gallop, clicks GI/Abdominal exam: Present: soft, normal bowel sounds. Absent: distended, tenderness, guarding, rebound, rigid Extremities exam: Present: normal inspection, full ROM, normal capillary refill, other (Skin to the lower extremities is pink, warm, dry. Cap refills less than 3 seconds. Pedal and posttibial pulses are 2+ and equal bilaterally.). Absent: tenderness, pedal edema, joint swelling, calf tenderness Back exam: Present: normal inspection, tenderness (Right lower back tenderness). Absent: vertebral tenderness Neurological exam: Present: alert, oriented X3, CN II-XII intact, other (Strength in the lower extremities is 5/5. Negative straight leg test.) Psychiatric exam: Present: normal affect, normal mood Skin exam: Present: warm, dry, intact, normal color. Absent: rash Course Vital Signs 03/07/20 03/07/20 03/07/20 20:09 20:12 22:45 Temperature 98.4 F 98.4 F 98 F Pulse Rate 96 76 89 Respiratory 18 16 18 Rate Blood Pressure 144/85 191/81 127/77 O2 Sat by Pulse 99 95 97 Oximetry Medical Decision Making - Medical Decision Making 39-year-old female patient presented to the emergency department today for evaluation of right low back pain. Pain worsened with movement and position changes. There is some right low back muscular tenderness. No spinal tenderness. Patient had no concerning symptoms for cauda equina. Did review of outside x-rays and showed no major abnormalities. Urinalysis was negative for evidence of infection or hematuria. I did discuss findings and results with the patient. Her symptoms are consistent with mechanical low back pain. We will switch her muscle relaxer to Flexeril and give her a starter pack of Tylenol with Codeine. She is instructed to follow-up with her primary care physician for recheck in 1-2 days. Return parameters were discussed in detail. She verbalizes understanding and agrees with this plan. - Lab Data Lab Results 03/07/20 Range/Units 21:52 Urine Color Yellow Urine Appearance Clear (Clear) Urine pH 6.0 (5.0-8.0) Ur Specific [place] 1.042 H (1.001-1.035) Urine Protein Trace H (Negative) Urine Glucose (UA) Negative (Negative) Urine Ketones Negative (Negative) Urine Blood Negative (Negative) Urine Nitrite Negative (Negative) Urine Bilirubin Negative (Negative) Urine Urobilinogen 2.0 (<2.0) mg/dL Ur Leukocyte Esterase Negative (Negative) - Radiology Data Radiology results: image reviewed Patient brought outside x-ray disc, this was uploaded and reviewed. No obvious abnormalities noted. Disposition Clinical Impression: Acute low back pain Disposition: HOME SELF-CARE Condition: Good Instructions (If sedation given, give patient instructions): Acute Low Back Pain (ED) Additional Instructions: Perform gentle range of motion exercises 3 times daily. Try to walk through your home at least once an hour. Take medications as directed. Follow up with your primary care physician for recheck in 1-2 days. Return to the emergency department immediately for any new, worsening, or concerning symptoms. Prescriptions: Cyclobenzaprine [Flexeril] 10 mg PO TID #20 tab Is patient prescribed a controlled substance at d/c from ED?: No Referrals: Lane Amaya III, MD [Primary Care Provider] - 1-2 days Time of Disposition: 22:17
[2020-03-07 22:46] VITALS: BP 127/77; PULSE 89; RESP 18; TEMP 98
== END 2020-03-07 22:46 | disposition home or self-care (01) ==
LOC: EC 20:05
DX: M54.5 Low back pain (principal); Z79.899 Other long term (current) drug therapy; Z88.6 Allergy status to analgesic agent; Z88.1 Allergy status to other antibiotic agents; Z88.5 Allergy status to narcotic agent; Z88.8 Allergy status to other drugs, medicaments and biological substances
CPT/HCPCS: 81003; 99283; 96372 ×2; J3360; J1885

== ENCOUNTER → 2021-02-13 | Outpatient (CLI) | payer OTHER ==
--- NOTE | 2021-02-13 14:46 | US ---
EXAMINATION TYPE: US venous doppler duplex LE BI DATE OF EXAM: 02/13/2021 2:19 PM COMPARISON: NONE CLINICAL HISTORY: M79.669 PAIN IN LOWER LEG. Bilateral leg pain SIDE PERFORMED: Bilateral TECHNIQUE: The lower extremity deep venous system is examined utilizing real time linear array sonog milena with graded compression, doppler sonography and color-flow sonography. VESSELS IMAGED: Common Femoral Vein Deep Femoral Vein Greater Saphenous Vein * Femoral Vein Popliteal Vein Small Saphenous Vein * Proximal Calf Veins (* superficial vessels) Right Leg: Negative for DVT Left Leg: Negative for DVT IMPRESSION: 1. Bilateral lower extremity ultrasound negative for deep venous thrombosis.
== END ==
LOC: RADUSWWP 14:18
PROVIDERS: ATTEND Family Medicine
DX: M79.604 Pain in right leg (principal); M79.605 Pain in left leg
CPT/HCPCS: 93970

== ENCOUNTER → 2021-07-01 | Outpatient (CLI) | payer OTHER ==
--- NOTE | 2021-07-07 12:25 | MM ---
Reason for exam: screening (asymptomatic). Last mammogram was performed 2 years and 6 months ago. History: Family history of breast cancer in aunt at age 41 and breast cancer in 3 other aunts. Benign US biopsy breast VAD RT of the right breast, January 11, 2019. Took hormonal contraceptives beginning at age 17. Physical Findings: A clinical breast exam by your physician is recommended on an annual basis and results should be correlated with mammographic findings. MG 3D Screening Mammo W/Cad Bilateral CC and MLO view(s) were taken. Prior study comparison: January 11, 2019, right breast MG diagnostic mammo RT wo CAD. January 03, 2019, bilateral MG 3d screening mammo w/cad. Previous mammotome biopsy in the right breast. No significant changes when compared with prior studies. ASSESSMENT: Benign, BI-RAD 2 RECOMMENDATION: Routine screening mammogram of both breasts in 1 year.
== END | disposition home or self-care (01) ==
LOC: RADMAMWWP 09:47
PROVIDERS: ATTEND Family Medicine
DX: Z12.31 Encounter for screening mammogram for malignant neoplasm of breast (principal); Z79.3 Long term (current) use of hormonal contraceptives; Z80.3 Family history of malignant neoplasm of breast
CPT/HCPCS: 77063; 77067

== ENCOUNTER → 2022-09-02 | Outpatient (CLI) | payer BC | END | disposition home or self-care (01) | LOC: LABWHC1 15:34 | PROVIDERS: ATTEND Otolaryngology | DX: J30.89 Other allergic rhinitis (principal) | CPT/HCPCS: 36415; 86001 ==

== ENCOUNTER → 2022-09-08 | Outpatient (CLI) | payer BC ==
--- NOTE | 2022-09-09 19:49 | MM ---
Reason for Exam: Screening (asymptomatic). Last mammogram was performed 1 year(s) and 2 month(s) ago. Patient History: Menarche at age 12. First Full-Term at age 20. Hysterectomy at age 29. Hormonal Contraceptives, from age 17 until age 19. 01/11/2019, Benign Core Biopsy on the right side. Paternal aunt had breast cancer, age 41. Paternal aunt had breast cancer. Paternal aunt had breast cancer. Paternal aunt had breast cancer. Last menstrual period: Risk Values: Kelly 5 year model risk: 0.9%. NCI Lifetime model risk: 10.8%. Prior Study Comparison: 01/03/2019 Bilateral Screening Mammogram, [facility]. 01/11/2019 Right Diagnostic Mammogram, [facility]. 07/01/2021 Bilateral Screening Mammogram, [facility]. Tissue Density: The breast tissue is heterogeneously dense. This may lower the sensitivity of mammography. Findings: Analyzed By CAD. Microclip anterior right breast from prior biopsy. Areas of asymmetric density do not persist on 3 images. Chronic nodularity anterior left breast. No significant change from prior exams. Overall Assessment: Benign, BI-RAD 2 Management: Screening Mammogram of both breasts in 1 year. 1. Patient should continue monthly self breast exams. 2. A clinical breast exam by your physician is recommended on an annual basis. 3. This exam should not preclude additional follow-up of suspicious palpable abnormalities. Electronically signed and approved by: Eloise Lopez M.D. Radiologist
== END | disposition home or self-care (01) ==
LOC: RADMAMWWP 10:58
PROVIDERS: ATTEND Family Medicine
DX: Z12.31 Encounter for screening mammogram for malignant neoplasm of breast (principal); Z80.3 Family history of malignant neoplasm of breast; Z98.890 Other specified postprocedural states
CPT/HCPCS: 77063; 77067

== ENCOUNTER 2022-10-07 08:34 | Day surgery (SDC) | payer BC ==
[2022-10-05 11:11] VITALS: BMI 27.9
[~2022-10-07 08:34] MED LIST: LACTATED RINGERS 1,000 ML IV SCH; LIDOCAINE 1% (10MG/ML) FOR IV START INTRADERMA PRN; ONDANSETRON 4 MG/2 ML VIAL IVP PRN
[2022-10-07 09:04] VITALS: TEMP 98.1
[2022-10-07] MEDS ORDERED: PROPOFOL 10 MG/ML 20 ML VIAL IV ONE (10:01)
--- NOTE | 2022-10-07 10:17 | P.PCN ---
Date of Procedure: 10/07/22 Procedure(s) Performed: BRIEF HISTORY: Patient is a 42-year-old pleasant white female scheduled for an elective colonoscopy as a part of screening for colon cancer and family history of colon cancer. Her dad was diagnosed with colon cancer at age 42. PROCEDURE PERFORMED: Colonoscopy. PREOPERATIVE DIAGNOSIS: screening forcolon cancer and family history of colon cancer IV sedation per Anesthesia. PROCEDURE: After informed consent was obtained, the patient, was brought into the endoscopy unit. IV sedation was administered by Anesthesia under continuous monitoring. Digital rectal examination was normal. Initially the Olympus CF-160 flexible video colonoscope was then inserted in the rectum, gradually advanced into the cecum without any difficulty. Careful examination was performed as the scope was gradually being withdrawn. Ileocecal valve and the appendiceal orifice were visualized and appeared normal. Prep was excellent. Mucosa of the cecum, ascending colon, transverse colon, descending colon, sigmoid colon, and rectum appeared normal. Retroflexion was performed in the rectum and no lesions were seen. The patient tolerated the procedure well. IMPRESSION: Normal-appearing colon from rectum to cecum with no evidence of colorectal neoplasia. RECOMMENDATIONS: Findings of this examination were discussed with the patient as well as his family.. She was advised to have a repeat screening colonoscopy in 5 years because of the family history of colon cancer.
[2022-10-07 10:30] VITALS: RESP 16
[2022-10-07 10:52] VITALS: BP 133/83; PULSE 60
== END 2022-10-07 11:04 | disposition home or self-care (01) ==
LOC: ORWHC2ENDO 08:34
PROVIDERS: ATTEND Internal Medicine Gastroenterology
DX: Z12.11 Encounter for screening for malignant neoplasm of colon (principal); Z80.0 Family history of malignant neoplasm of digestive organs; J45.909 Unspecified asthma, uncomplicated
CPT/HCPCS: 45378; J2704

== ENCOUNTER → 2023-09-28 | Outpatient (CLI) | payer BC ==
--- NOTE | 2023-09-29 07:36 | MM ---
Reason for Exam: Screening (asymptomatic). Last screening mammogram was performed 12 month(s) ago. Patient History: Menarche at age 12. First Full-Term at age 20. Hysterectomy at age 29. Hormonal Contraceptives, from age 17 until age 19. 01/11/2019, Benign Core Biopsy on the right side. Paternal aunt had breast cancer, age 41. Paternal aunt had breast cancer. Paternal aunt had breast cancer. Paternal aunt had breast cancer. Risk Values: Kelly 5 year model risk: 1.0%. NCI Lifetime model risk: 10.6%. Prior Study Comparison: 01/11/2019 Right Diagnostic Mammogram, [facility]. 07/01/2021 Bilateral Screening Mammogram, [facility]. 09/08/2022 Bilateral MG 3D screening mammo w/cad, [facility]. Tissue Density: The breast tissue is heterogeneously dense. This may lower the sensitivity of mammography. Findings: Analyzed By CAD. There is no suspicious group of microcalcifications or new suspicious mass in either breast. Biopsy clip within the right breast. Overall Assessment: Benign, BI-RAD 2 Management: Screening Mammogram of both breasts in 1 year. A clinical breast exam by your physician is recommended on an annual basis and results should be correlated with mammographic findings. Note on Kelly scores and lifetime risk: 1. A Kelly score greater than 3% is considered moderate risk. If this is the case, consider specialist referral to assess eligibility for a risk reducing agent. If overall lifetime risk for the development of breast cancer is 20% or higher, the patient may qualify for future screening with alternating mammogram and breast MRI. Electronically signed and approved by: Gray Angeles D.O.
== END | disposition home or self-care (01) ==
LOC: RADMAMWWP 07:25
PROVIDERS: ATTEND Family Medicine
DX: Z12.31 Encounter for screening mammogram for malignant neoplasm of breast (principal); Z80.3 Family history of malignant neoplasm of breast
CPT/HCPCS: 77063; 77067

== ENCOUNTER 2024-06-04 11:17 | Emergency (ER) | payer BC ==
--- NOTE | 2024-06-04 11:32 | ED ---
General Adult HPI - General Chief complaint: Psychiatric Symptoms Stated complaint: Petition Time Seen by Provider: 06/04/24 11:27 Source: patient Mode of arrival: ambulatory Limitations: no limitations - History of Present Illness Initial comments: Dictation was produced using [employer] dictation software. please excuse any grammatical, word or spelling errors. Chief Complaint: 43-year-old female presents to the emergency department for suicidal ideation History of Present Illness: Patient 43-year-old female brought in by [facility] for depression and suicidal ideation. Patient is depressed because she states that her wants a divorce. Patient states that she did mention to them that she was suicidal. Patient denies any acute medical complaints. Denies any homicidal ideation. No visual auditory hallucinations. The ROS documented in this emergency department record has been reviewed and confirmed by me. Those systems with pertinent positive or negative responses have been documented in the HPI. All other systems are other negative and/or noncontributory. - Related Data Home Medications Medication Instructions Recorded Confirmed Ergocalciferol (Vitamin D2) 50,000 unit PO FR 04/04/17 10/07/22 [Vitamin D2] Fluticasone/Vilanterol [Breo 1 inhalation PO Q24HR 10/05/22 10/07/22 Ellipta 100-25 Mcg Inhaler] Levothyroxine Sodium [Synthroid] 25 mcg PO DAILY 10/05/22 10/07/22 Lisdexamfetamine Dimesylate 40 mg PO QAM 10/05/22 10/07/22 [Vyvanse] Memantine [Namenda] 5 mg PO DAILY 10/05/22 10/07/22 cycloSPORINE 0.05% OPHTH SOLN 1 applicator BOTH EYES Q12H 10/05/22 10/07/22 [Restasis] Allergies Allergy/AdvReac Type Severity Reaction Status Date / Time bee venom protein (honey bee) Allergy Rash/Hives Verified 06/04/24 11:25 cefuroxime [From Ceftin] Allergy Rash/Hives Verified 10/07/22 09:05 hydrocodone [From Lortab] Allergy Rash/Hives Verified 10/07/22 09:05 hydrocodone bitartrate Allergy Rash/Hives Verified 10/07/22 09:05 [From Vicodin] propoxyphene napsylate Allergy Vomiting Verified 10/07/22 09:05 [From Darvocet-N] carbamazepine [From Tegretol] AdvReac Vomiting Verified 10/07/22 09:05 Review of Systems ROS Statement: Those systems with pertinent positive or pertinent negative responses have been documented in the HPI. ROS Other: All systems not noted in ROS Statement are negative. Past Medical History Past Medical History: GERD/Reflux, Thyroid Disorder Additional Past Medical History / Comment(s): narcalepsy, hemachromotisis History of Any Multi-Drug Resistant Organisms: None Reported Past Surgical History: Hysterectomy Additional Past Surgical History / Comment(s): right foot surgery-neroma removed 2012. carpal tunnel surgery Past Anesthesia/Blood Transfusion Reactions: No Reported Reaction Past Psychological History: No Psychological Hx Reported Past Alcohol Use History: Occasional Past Drug Use History: None Reported General Exam - General Exam Comments Initial Comments: General: Well-appearing, nontoxic, no acute distress. Head: Normocephalic, atraumatic Eyes: PERRLA, EOMI ENT: Airway patent Chest: Nonlabored breathing Skin: No visual rash, normal skin tone Neuro: Alert and oriented 3 Musculoskeletal: No gross abnormalities Limitations: no limitations Course Vital Signs 06/04/24 11:22 Temperature 98.1 F Pulse Rate 60 Respiratory 16 Rate Blood Pressure 119/83 O2 Sat by Pulse 99 Oximetry Medical Decision Making - Medical Decision Making Was pt. sent in by a medical professional or institution (SR[facility]AM Lewis, SLOPE HOIST OPERATOR, urgent ca re, hospital, or shelter...) When possible be specific @ -No Did you speak to anyone other than the patient for history (EMS, parent, family, police, friend...)? What history was obtained from this source @ -No Did you review nursing and triage notes (agree or disagree)? Why? @ -I reviewed and agree with nursing and triage notes Were old charts reviewed (outside hosp., previous admission, EMS record, old EKG, old radiological studies, urgent care reports/EKG's, shelter records)? Report findings @ -No old charts were reviewed Differential Diagnosis (chest pain, altered mental status, abdominal pain women, abdominal pain men, vaginal bleeding, musculoskeletal, weakness, fever, dyspnea, syncope, headache, dizziness, GI bleed, back pain, seizure, CVA, palpatations, mental health)? @ -Differential Mental Health: Depression, anxiety, bipolar, psychosis, schizophrenia, borderline personality, situational depression, adjustment disorder, behavioral disorder, brain tumor, malingering, substance abuse, encephalopathy, medication reaction, dementia, hypothyroidism, degenerative neurologic disorder, lupus.... This is not meant to be all-inclusive list EKG interpreted by me (3pts min.). @ -None done X-rays interpreted by me (1pt min.). @ -None done CT interpreted by me (1pt min.). @ -None done U/S interpreted by me (1pt. min.). @ -None done What testing was considered but not performed or refused? (CT, X-rays, U/S, labs)? Why? @ -None What meds were considered but not given or refused? Why? @ -None Was smoking cessation discussed for >3mins.? @ -No Were there social determinants of health that impacted care today? How? (Homelessness, low income, unemployed, alcoholism, drug addiction, transportation, low edu. Level, literacy, decrease access to med. care, half-way, rehab)? @ -No Was there de-escalation of care discussed even if they declined (Discuss DNR or withdrawal of care, Hospice)? DNR status @ -No What co-morbidities impacted this encounter? (DM, HTN, Smoking, COPD, CAD, Cancer, CVA, ARF, Chemo, Hep., AIDS, mental health diagnosis, sleep apnea, morbid obesity)? @ -None Was patient admitted / discharged? Hospital course, mention meds given and route, prescriptions, significant lab abnormalities, going to OR and other pertinent info. @ -43-year-old female brought in by for psychiatric evaluation due to suicidal ideation. Vital signs stable. Patient medically cleared for EPS evaluation. Patient evaluated by EPS recommended discharge with outpatient safety plan. Regarding EPS patient has good outpatient follow-up. Did you discuss the management of the patient with other professionals (professionals i.e. , PA, SLOPE HOIST OPERATOR, lab, RT, psych nurse, social media senior associate, business technology architect, teacher, building drafting officer, medical case worker)? Give summary @ -No Was critical care preformed (if so, how long)? @ -No Undiagnosed new problem with uncertain prognosis? @ -No Drug Therapy requiring intensive monitoring for toxicity (Heparin, Nitro, Insulin, Cardizem)? @ -No Were any procedures done? @ -No Diagnosis/symptom? Acute, or Chronic, or Acute on Chronic? Uncomplicated (without systemic symptoms) or Complicated (systemic symptoms)? @ -Suicidal ideation Side effects of treatment? @ -No Exacerbation, Progression, or Severe Exacerbation? @ -No Poses a threat to life or bodily function? How? (Chest pain, [place], [place], pneumonia, PE, COPD, DKA, ARF, appy, cholecystitis, CVA, Diverticulitis, Homicidal, Suicidal, threat to staff... and all critical care pts) @ -yes Disposition Clinical Impression: Depression Disposition: HOME SELF-CARE Condition: Fair Instructions (If sedation given, give patient instructions): Depression (ED) Is patient prescribed a controlled substance at d/c from ED?: No Referrals: Niurka Araiza MD [Primary Care Provider] - 1-2 days Time of Disposition: 13:38
[2024-06-04 14:13] VITALS: BP 121/72; PULSE 63; RESP 14; TEMP 98.7
== END 2024-06-04 14:13 | disposition home or self-care (01) ==
LOC: EC 11:17
DX: R45.851 Suicidal ideations (principal); F32.A Depression, unspecified; Z88.1 Allergy status to other antibiotic agents; Z88.5 Allergy status to narcotic agent; Z91.030 Bee allergy status; Z88.8 Allergy status to other drugs, medicaments and biological substances
CPT/HCPCS: 82075; 99284

== ENCOUNTER → 2024-07-03 | Outpatient (CLI) | payer BC ==
--- NOTE | 2024-07-25 15:00 | US ---
Patient: Yoana Cat Ordering Physician: Unknown, Unknown ID: [id number] Phone, Pager: Phone: N/A Pager: N/A : 1980 Age/Gender: 43Y, O Primary Location: N/A Procedure: US venous doppler duple x UE RT Study Date: 07/03/2024 12:13:00 PM EXAMINATION TYPE: US venous doppler duplex UE RT DATE OF EXAM: 07/22/2024 COMPARISON: NONE CLINICAL INDICATION: Right arm pain and lump SIDE PERFORMED: Right Right Arm: No evidence for deep vein thrombosis. Superficial femoral phlebitis within the vein of the forearm. IMPRESSION: 1. No deep vein thrombosis. 2. Superficial thrombophlebitis of the left forming.
== END | disposition home or self-care (01) ==
LOC: RADUSWWP 12:03
PROVIDERS: ATTEND Neurological Surgery
DX: M79.601 Pain in right arm (principal); I80.8 Phlebitis and thrombophlebitis of other sites

== ENCOUNTER → 2024-10-12 | Outpatient (CLI) | payer BC ==
--- NOTE | 2024-10-13 22:35 | MM ---
Reason for Exam: Screening (asymptomatic). Last mammogram was performed 1 year(s) and 1 month(s) ago. Patient History: Menarche at age 12. First Full-Term at age 20. Hysterectomy at age 29. Hormonal Contraceptives, from age 17 until age 19. 01/11/2019, Benign Core Biopsy on the right side. Paternal aunt had breast cancer, age 41. Paternal aunt had breast cancer, age 55. Risk Values: Kelly 5 year model risk: 1.1%. NCI Lifetime model risk: 10.5%. Prior Study Comparison: 07/01/2021 Bilateral Screening Mammogram, [facility]. 09/08/2022 Bilateral MG 3D screening mammo w/cad, [facility]. 09/28/2023 Bilateral MG 3D screening mammo w/cad, [facility]. Tissue Density: The breasts are heterogeneously dense, which may obscure small masses. Findings: Analyzed By CAD. The pattern is symmetrical. No significant interval change is evident. Focal asymmetries in the upper outer right breast present previously. Core markers within the right breast No suspicious groups of microcalcifications, spiculated or lobular masses, architectural distortion or other secondary signs of malignancy are mammographically apparent. Overall Assessment: Benign, BI-RAD 2 Management: Screening Mammogram of both breasts in 1 year. A negative mammogram report should not preclude additional follow up of suspicious palpable abnormalities. Patient should continue monthly self breast exam. A clinical breast exam by your physician is recommended on an annual basis and results should be correlated with mammographic findings. Note on Kelly scores and lifetime risk: 1. A Kelly score greater than 3% is considered moderate risk. If this is the case, consider specialist referral to assess eligibility for a risk reducing agent. 2. If overall lifetime risk for the development of breast cancer is 20% or higher, the patient may qualify for future screening with alternating mammogram and breast MRI. [facility], , 10/13/2024 10:32 PM. Electronically signed and approved by: Aashish Marrero D.O. Radiologis
== END | disposition home or self-care (01) ==
LOC: RADMAMWWP 08:45
PROVIDERS: ATTEND Family Medicine
DX: Z12.31 Encounter for screening mammogram for malignant neoplasm of breast (principal); Z80.3 Family history of malignant neoplasm of breast; R92.333 Mammographic heterogeneous density, bilateral breasts
CPT/HCPCS: 77063; 77067

== ENCOUNTER → 2024-11-20 | Outpatient (CLI) | payer BC ==
--- NOTE | 2024-11-20 13:54 | CT ---
EXAMINATION TYPE: CT cervical spine wo con CT DLP: 538.2 mGycm, Automated exposure control for dose reduction was used. DATE OF EXAM: 11/20/2024 12:54 PM COMPARISON: None. CLINICAL INDICATION:Female, 44 years old with history of M48.02 SPINAL STENOSIS, CERVICAL REGION; PHH , cervical fusion, back, neck, shoulder pain TECHNIQUE: Axial CT images from the skull base to the inferior aspect of T2 we obtained without intra venous contrast. Coronal and sagittal reformatted images were also reviewed. FINDINGS: Fracture: None. Osseous structures: Postsurgical changes from anterior cervical fusion involving C5-C7 with additiona l hardware identified within the disc space at C4-C5. Hardware appears intact with appropriate alignm ent. Hardware creates streak artifact which limits evaluation. Degenerative facet arthropathy involvi ng the left C2-C3 facet joint and on the right at C3-C4. Vertebral alignment: No spondylolisthesis. Straightening of the cervical spine. Spinal canal/Neural Foramina: Posterior disc osteophyte complex at C6-C7 with mild effacement of the anterior thecal sac. No other level of significant central canal stenosis. Moderate right neuroforami na stenosis at C3-C4 mild left neural foraminal stenosis at C2-C3. Otherwise anterior thecal no other significant neural foraminal stenosis at other levels. Neck soft tissues: Prevertebral soft tissues are within normal limits. Other: The airway is patent. The lung apices are clear. IMPRESSION: 1. No evidence of cervical spine fracture. 2. Postsurgical changes from anterior cervical fusion involving C5-C7 with additional hardware was id entified within the disc space at C4-C5. Hardware appears intact with appropriate alignment. 3. Mild multilevel degenerative disc disease and facet arthropathy as described above. [facility], , 11/20/2024 1:51 PM
== END | disposition home or self-care (01) ==
LOC: RADCTMAIN 12:35
PROVIDERS: ATTEND Neurological Surgery
DX: M47.812 Spondylosis without myelopathy or radiculopathy, cervical region (principal); M48.02 Spinal stenosis, cervical region; M50.321 Other cervical disc degeneration at C4-C5 level; Z98.1 Arthrodesis status
CPT/HCPCS: 72125